=== PATIENT | female | born 1980 | race Caucasian/White ===

== ENCOUNTER 2017-04-28 06:18 | Emergency (ER) | payer BC ==
[~2017-04-28] VITALS: Ht 160 cm; Wt 72.6 kg
[2017-04-28] MEDS ORDERED: CYCL10 PO (07:01)
[2017-10-31] MEDS ORDERED: PROM25 PO (14:26)
[2017-10-31] MEDS ORDERED: PROM25 PR (14:26)
[2017-10-31] MEDS ORDERED: Macrobid 100 M100 MG PO (14:26)
[2017-11-08] MEDS ORDERED: Verotin-Gr Cap1 EACH PO (15:50)
[2017-11-08] MEDS ORDERED: METO10 PO (15:51)
[2017-11-08] MEDS ORDERED: ONDA4 PO (15:52)
== END 2017-04-28 07:11 | disposition home or self-care (01) ==
LOC: ER 06:18
DX: M43.6 Torticollis (principal); Z88.0 Allergy status to penicillin
CPT/HCPCS: 99283

== ENCOUNTER 2017-11-19 00:30 | Day surgery (SDC) | payer BC ==
[~2017-11-19 00:30] MED LIST: CYCL10 PO; METO10 PO; Macrobid 100 M100 MG PO; ONDA4 PO; PROM25 PO; PROM25 PR; Verotin-Gr Cap1 EACH PO
== END 2017-11-19 10:35 | disposition home or self-care (01) ==
LOC: ATC 00:30
DX: O21.0 Mild hyperemesis gravidarum (principal); Z3A.00 Weeks of gestation of pregnancy not specified
CPT/HCPCS: 96365; 96375; J2405; J3411; J3475; J7042

== ENCOUNTER 2017-11-26 00:49 | Day surgery (SDC) | payer BC | END 2017-11-26 10:56 | disposition home or self-care (01) | LOC: ATC 00:49 | DX: O21.0 Mild hyperemesis gravidarum (principal); Z3A.00 Weeks of gestation of pregnancy not specified | CPT/HCPCS: 96365; 96375; J2405; J3411; J3475; J7042 ==

== ENCOUNTER 2017-12-03 00:22 | Day surgery (SDC) | payer BC ==
[~2017-12-03 00:22] MED LIST changes: -NITR100CA PO; -ZOFRAN4 MG/5 M1 IV
== END 2017-12-03 11:01 | disposition home or self-care (01) ==
LOC: ATC 00:22
DX: O21.0 Mild hyperemesis gravidarum (principal); Z3A.00 Weeks of gestation of pregnancy not specified
CPT/HCPCS: 96360; 96374; J2405; J3411; J3475; J7042

== ENCOUNTER → 2017-12-03 | Outpatient (CLI) | payer BC ==
[~2017-12-03] MED LIST changes: +NITR100CA PO; +ZOFRAN4 MG/5 M1 IV
[2017-12-03 13:06] LABS: Bilirubin, Urine Neg (Neg); Blood, Urine 1+ (Neg); Glucose Qualitative, Urine 4+ (Neg); Ketones, Urine Neg (Neg); Leukocyte Esterase, Urine Neg (Neg); Nitrite, Urine Neg (Neg); Protein, Urine Neg (Neg); Urobilinogen, Urine NORM (Normal)
[2017-12-03 13:26] LABS: Appearance, Urine Clear (Clear); Color, Urine Yellow (P-Yellow)
[2017-12-03 13:28] LABS: Bacteria Rare /hpf; Mucus Light (0-Heavy); Red Blood Cells, Urine 0-2 /hpf (0-2); Squamous Epithelial Cells Mod /hpf (Few); White Blood Cells, Urine 0-2 /hpf (0-5)
== END | disposition home or self-care (01) ==
LOC: LAB 11:30 → LAB SHORT 11:30
PROVIDERS: Advanced Practice Midwife
DX: R82.99 Other abnormal findings in urine (principal)
CPT/HCPCS: 81001; 87086

== ENCOUNTER 2017-12-05 00:28 | Day surgery (SDC) | payer BC ==
[2017-12-05] MEDS ORDERED: ZOFRAN4 MG/5 M1 IV (09:39)
[2017-12-05] MEDS ORDERED: NITR100CA PO (09:40)
== END 2017-12-05 10:38 | disposition home or self-care (01) ==
LOC: ATC 00:28
DX: O21.0 Mild hyperemesis gravidarum (principal); Z3A.00 Weeks of gestation of pregnancy not specified
CPT/HCPCS: 96365; 96375; J2405; J3411; J3475; J7042

== ENCOUNTER 2017-12-07 00:39 | Day surgery (SDC) | payer BC ==
[~2017-12-07 00:39] MED LIST changes: +NITR100CA PO; +ZOFRAN4 MG/5 M1 IV
== END 2017-12-07 10:33 | disposition home or self-care (01) ==
LOC: ATC 00:39
DX: O21.0 Mild hyperemesis gravidarum (principal); O09.521 Supervision of elderly multigravida, first trimester; Z3A.13 13 weeks gestation of pregnancy; Z88.0 Allergy status to penicillin
CPT/HCPCS: 96365; 96375; J2405; J3411; J3475; J7042

== ENCOUNTER 2017-12-11 00:15 | Day surgery (SDC) | payer BC | END 2017-12-11 10:58 | disposition home or self-care (01) | LOC: ATC 00:15 | DX: O21.0 Mild hyperemesis gravidarum (principal); Z3A.14 14 weeks gestation of pregnancy | CPT/HCPCS: 96365; 96375; J2405; J3411; J3475; J7042 ==

== ENCOUNTER 2017-12-13 00:25 | Day surgery (SDC) | payer BC | END 2017-12-13 12:00 | disposition home or self-care (01) | LOC: ATC 00:25 | DX: O21.0 Mild hyperemesis gravidarum (principal) | CPT/HCPCS: 96365; 96375; J2405; J3411; J3475; J7042 ==

== ENCOUNTER 2017-12-15 09:12 | Day surgery (SDC) | payer BC | END 2017-12-15 10:34 | disposition home or self-care (01) | LOC: ATC 09:12 | DX: O21.0 Mild hyperemesis gravidarum (principal); O09.521 Supervision of elderly multigravida, first trimester; Z3A.00 Weeks of gestation of pregnancy not specified | CPT/HCPCS: 96365; 96375; J2405; J3411; J3475; J7042 ==

== ENCOUNTER 2017-12-17 00:11 | Day surgery (SDC) | payer BC | END 2017-12-17 10:26 | disposition home or self-care (01) | LOC: ATC 00:11 | DX: O21.0 Mild hyperemesis gravidarum (principal); Z3A.21 21 weeks gestation of pregnancy | CPT/HCPCS: 96365; 96375; J2405; J3411; J3475; J7042 ==

== ENCOUNTER 2017-12-21 00:17 | Day surgery (SDC) | payer BC | END 2017-12-21 09:55 | disposition home or self-care (01) | LOC: ATC 00:17 | DX: O21.0 Mild hyperemesis gravidarum (principal) | CPT/HCPCS: 96365; 96375; J2405; J3411; J3475; J7042 ==

== ENCOUNTER 2017-12-23 00:10 | Day surgery (SDC) | payer BC | END 2017-12-23 10:20 | disposition home or self-care (01) | LOC: ATC 00:10 | DX: O21.0 Mild hyperemesis gravidarum (principal); Z3A.00 Weeks of gestation of pregnancy not specified | CPT/HCPCS: 96365; 96375; J2405; J3411; J3475; J7042 ==

== ENCOUNTER 2017-12-27 00:13 | Day surgery (SDC) | payer BC ==
[2017-12-27] MEDS ORDERED: SCOPOLAMINE1 EACH TD (10:53)
== END 2017-12-27 11:55 | disposition home or self-care (01) ==
LOC: ATC 00:13
DX: O21.0 Mild hyperemesis gravidarum (principal); Z3A.00 Weeks of gestation of pregnancy not specified
CPT/HCPCS: 96365; 96375; J2405; J3411; J3475; J7042

== ENCOUNTER 2017-12-29 08:03 | Day surgery (SDC) | payer BC ==
[~2017-12-29 08:03] MED LIST changes: +SCOPOLAMINE1 EACH TD
== END 2017-12-29 09:52 | disposition home or self-care (01) ==
LOC: ATC 08:03
DX: O21.0 Mild hyperemesis gravidarum (principal)
CPT/HCPCS: 96365; 96375; J2405; J3411; J3475; J7042

== ENCOUNTER 2017-12-31 00:08 | Day surgery (SDC) | payer BC | END 2017-12-31 09:34 | disposition home or self-care (01) | LOC: ATC 00:08 | DX: O21.0 Mild hyperemesis gravidarum (principal); Z3A.00 Weeks of gestation of pregnancy not specified | CPT/HCPCS: 96365; 96375; J2405; J3411; J3475; J7042 ==

== ENCOUNTER 2018-01-02 00:25 | Day surgery (SDC) | payer BC | END 2018-01-02 09:34 | disposition home or self-care (01) | LOC: ATC 00:25 | DX: O21.0 Mild hyperemesis gravidarum (principal); Z3A.00 Weeks of gestation of pregnancy not specified | CPT/HCPCS: 96365; 96375; J2405; J3411; J3475; J7042 ==

== ENCOUNTER 2018-01-04 00:32 | Day surgery (SDC) | payer BC | END 2018-01-04 10:50 | disposition home or self-care (01) | LOC: ATC 00:32 | DX: O21.0 Mild hyperemesis gravidarum (principal) | CPT/HCPCS: 96365; 96375; J2405; J3411; J3475; J7042 ==

== ENCOUNTER 2018-01-06 00:43 | Day surgery (SDC) | payer BC | END 2018-01-06 10:28 | disposition home or self-care (01) | LOC: ATC 00:43 | DX: O21.0 Mild hyperemesis gravidarum (principal) | CPT/HCPCS: 96365; 96375; J2405; J3411; J3475; J7042 ==

== ENCOUNTER 2018-01-08 02:10 | Day surgery (SDC) | payer BC | END 2018-01-08 11:15 | disposition home or self-care (01) | LOC: ATC 02:10 | DX: O21.0 Mild hyperemesis gravidarum (principal) | CPT/HCPCS: 96365; 96375; J2405; J3411; J3475; J7042 ==

== ENCOUNTER 2018-01-10 00:21 | Day surgery (SDC) | payer BC | END 2018-01-10 10:34 | disposition home or self-care (01) | LOC: ATC 00:21 | DX: O21.0 Mild hyperemesis gravidarum (principal) | CPT/HCPCS: 96365; 96375; J2405; J3411; J3475; J7042 ==

== ENCOUNTER 2018-01-12 08:57 | Day surgery (SDC) | payer BC | END 2018-01-12 10:27 | disposition home or self-care (01) | LOC: ATC 08:57 | DX: O21.0 Mild hyperemesis gravidarum (principal); Z3A.00 Weeks of gestation of pregnancy not specified | CPT/HCPCS: 96365; 96375; J2405; J3411; J3475; J7042 ==

== ENCOUNTER 2018-01-14 00:04 | Day surgery (SDC) | payer BC | END 2018-01-14 22:38 | disposition home or self-care (01) | LOC: ATC 00:04 | DX: O21.0 Mild hyperemesis gravidarum (principal) | CPT/HCPCS: 96365; 96375; J2405; J3411; J3475; J7042 ==

== ENCOUNTER 2018-01-16 00:24 | Day surgery (SDC) | payer BC | END 2018-01-16 10:30 | disposition home or self-care (01) | LOC: ATC 00:24 | DX: O21.0 Mild hyperemesis gravidarum (principal) | CPT/HCPCS: 96365; 96375; J2405; J3411; J3475; J7042 ==

== ENCOUNTER 2018-02-06 13:28 | Day surgery (SDC) | payer BC | END 2018-02-06 15:15 | disposition home or self-care (01) | LOC: ATC 13:28 | DX: O21.0 Mild hyperemesis gravidarum (principal); Z3A.00 Weeks of gestation of pregnancy not specified | CPT/HCPCS: 96365; 96375; J2405; J3411; J3475; J7042 ==

== ENCOUNTER → 2018-05-02 | Outpatient (CLI) | payer BC ==
[~2018-05-02] MED LIST changes: +IBUP800
== END ==
LOC: LAB 09:38 → LAB SHORT 09:38
DX: Z34.80 Encounter for supervision of other normal pregnancy, unspecified trimester (principal)
CPT/HCPCS: 87081; 87653

== ENCOUNTER 2018-05-13 17:48 | Observation (INO) | payer BC ==
[~2018-05-13] VITALS: Ht 167.6 cm; Wt 86.3 kg
[~2018-05-13 17:48] MED LIST changes: -IBUP800
== END 2018-05-14 11:30 | disposition home or self-care (01) ==
LOC: OBS 17:48 → BC 17:49 → OBS 19:40 → BC 19:42
PROVIDERS: ADMIT Advanced Practice Midwife
DX: O12.13 Gestational proteinuria, third trimester (principal); O21.0 Mild hyperemesis gravidarum; O99.343 Other mental disorders complicating pregnancy, third trimester; Z3A.35 35 weeks gestation of pregnancy; Z88.0 Allergy status to penicillin
CPT/HCPCS: 59025; 76819; 99214; G0378

== ENCOUNTER 2018-05-25 14:14 | Inpatient (IN) | payer BC ==
[~2018-05-25] VITALS: Ht 160 cm; Wt 0.1 kg
[2018-05-25 14:53] LABS: BASOPHILS ABSOLUTE AUTO 0.02 K/mm3 (0.00-0.23); BASOPHILS PERCENT AUTO 0 % (0-2); EOSINOPHILS ABSOLUTE AUTO 0.08 K/mm3 (0.00-0.68); EOSINOPHILS PERCENT AUTO 1 % (0-6); Hematocrit 36.4 % (33.0-51.0); Hemoglobin 11.9 g/dL (11.5-16.0); IMMATURE GRAN ABSOLUTE AUTO 0.06 K/mm3 (0.00-0.10); IMMATURE GRAN PERCENT AUTO 1 % (0-1); LYMPHOCYTES ABSOLUTE AUTO 1.04 K/mm3 (0.84-5.20); LYMPHOCYTES PERCENT AUTO 11 % (21-46); MONOCYTES ABSOLUTE AUTO 0.58 K/mm3 (0.16-1.47); MONOCYTES PERCENT AUTO 6 % (4-13); Mean Corpuscular HGB 27.5 pg (26.0-34.0); Mean Corpuscular HGB Conc 32.7 g/dL (31.5-36.5); Mean Corpuscular Volume 84 fL (80-100); Mean Platelet Volume 10.2 fL (9.1-12.4); NEUTROPHILS ABSOLUTE AUTO 7.64 K/mm3 (1.96-9.15); NEUTROPHILS PERCENT AUTO 81 % (41-73); Platelet Count 241 K/mm3 (150-400); RDW Coefficient Variation 14.1 % (11.7-14.2); RDW Standard Deviation 43.2 fL (35.1-46.3); Red Blood Cell Count 4.33 M/mm3 (3.80-5.20); White Blood Cell Count 9.42 K/mm3 (4.00-11.30)
--- NOTE | 2018-05-26 14:06 | NUR ---
1ST PP VOID
[2018-05-27 05:49] LABS: Hematocrit 32.2 % (33.0-51.0); Hemoglobin 10.2 g/dL (11.5-16.0); Mean Corpuscular HGB Conc 31.7 g/dL (31.5-36.5); Mean Corpuscular Volume 85 fL (80-100); Mean Platelet Volume 10.2 fL (9.1-12.4); Platelet Count 191 K/mm3 (150-400); RDW Coefficient Variation 14.6 % (11.7-14.2); RDW Standard Deviation 44.4 fL (35.1-46.3); Red Blood Cell Count 3.78 M/mm3 (3.80-5.20); White Blood Cell Count 10.35 K/mm3 (4.00-11.30)
[2018-05-27] MEDS ORDERED: IBUP800 (10:04)
--- NOTE | 2018-05-27 13:47 | NUR ---
PATIENT GIVEN DISCHARGE INSTRUCTIONS. ALL QUESTIONS ANSWERED.
--- NOTE | 2018-05-27 14:00 | NUR ---
DISCHARGED TO HOME WITH BABY IN CAR SEAT. WALKED OUT BY RN AT 1400.
== END 2018-05-27 14:00 | disposition home or self-care (01) | DRG 807 ==
LOC: OBS 14:14 → BC 14:20
PROVIDERS: ADMIT Advanced Practice Midwife
PROC: 10E0XZZ Delivery of Products of Conception, External Approach (ICD-10-PCS; principal; 2018-05-26)
PROC: 0KQM0ZZ Repair Perineum Muscle, Open Approach (ICD-10-PCS; 2018-05-26)
PROC: 10H07YZ Insertion of Other Device into Products of Conception, Via Natural or Artificial Opening (ICD-10-PCS; 2018-05-26)
PROC: 3E0R3BZ Introduction of Anesthetic Agent into Spinal Canal, Percutaneous Approach (ICD-10-PCS; 2018-05-26)
DX: O12.14 Gestational proteinuria, complicating childbirth (principal); Z37.0 Single live birth; Z3A.38 38 weeks gestation of pregnancy; O70.1 Second degree perineal laceration during delivery; Z88.0 Allergy status to penicillin; Z91.013 Allergy to seafood
CPT/HCPCS: 36415; 51702; 85025; 85027; 90471; 90707; J1885; J2590; J7120

== ENCOUNTER → 2018-07-14 | Outpatient (CLI) | payer BC ==
[~2018-07-14] MED LIST changes: +IBUP800
[2018-07-14 13:12] LABS: Protein, Urine Quantitative 13.3 mg/dL (0.0-11.9)
== END | disposition home or self-care (01) ==
LOC: LAB SHORT 12:09 → LAB 12:09
PROVIDERS: Advanced Practice Midwife
DX: R80.9 Proteinuria, unspecified (principal)
CPT/HCPCS: 81050; 84156

== ENCOUNTER → 2019-07-17 | Outpatient (CLI) | payer BC | END | disposition home or self-care (01) | LOC: LAB 08:30 → LAB SHORT 08:30 | DX: J02.9 Acute pharyngitis, unspecified (principal) | CPT/HCPCS: 87081 ==

== ENCOUNTER → 2021-05-14 | Outpatient (CLI) | payer BC | LOC: LAB SHORT 16:15 | DX: J02.9 Acute pharyngitis, unspecified (principal) | CPT/HCPCS: 87081 ==

== ENCOUNTER → 2023-12-13 | Outpatient (CLI) | payer OTHER ==
[2023-12-13 19:49] LABS: Candida Group, PCR NOT DETECTED (NOT DETECT); Candida glabrata-krusei, PCR NOT DETECTED (NOT DETECT)
[2023-12-13 19:52] LABS: Bacterial Vaginosis PCR Positive (NEGATIVE)
[2023-12-17 17:41] LABS: MYCOPLASMA GENITALIUM BY PCR Not Detected; MYCOPLASMA HOMINIS BY PCR Not Detected; UREAPLASMA MYCOPLASMA SOURCE Urine; UREAPLASMA PARVUM BY PCR Detected; UREAPLASMA UREALYTICUM BY PCR Not Detected
[2023-12-18 08:26] LABS: APTIMA MEDIA TYPE Unisex Swab; C. TRACHOMATIS BY TMA Negative (Negative); N. GONORRHOEAE BY TMA Negative (Negative); SPECIMEN SOURCE Vaginal
== END ==
LOC: LAB 18:02 → LAB SHORT 18:02
PROVIDERS: Obstetrics & Gynecology
DX: Z11.3 Encounter for screening for infections with a predominantly sexual mode of transmission (principal); N76.0 Acute vaginitis
CPT/HCPCS: 87481; 87491; 87563; 87591; 87661; 87798; 87801

== ENCOUNTER 2024-02-18 19:51 | Emergency (ER) | payer OTHER ==
[~2024-02-18] VITALS: Ht 160 cm; Wt 86.2 kg
[2024-02-18 20:09] VITALS: BP 137/89
== END 2024-02-18 21:27 | disposition home or self-care (01) ==
LOC: ER 19:51
DX: M79.10 Myalgia, unspecified site (principal); Z79.899 Other long term (current) drug therapy; Z88.0 Allergy status to penicillin; Z91.013 Allergy to seafood; V40.5XXA Car driver injured in collision with pedestrian or animal in traffic accident, initial encounter
CPT/HCPCS: 99283

== ENCOUNTER → 2024-06-10 | Outpatient (CLI) | payer OTHER ==
[2024-06-14 04:46] LABS: MYCOPLASMA GENITALIUM BY PCR Not Detected; MYCOPLASMA HOMINIS BY PCR Not Detected; UREAPLASMA MYCOPLASMA SOURCE Urine; UREAPLASMA PARVUM BY PCR Detected; UREAPLASMA UREALYTICUM BY PCR Not Detected
[2024-06-17 18:29] LABS: HPV HIGH RISK BY TMA Not Detected; HPV SOURCE Cervical
== END ==
LOC: LAB SHORT 16:23 → LAB 16:23
PROVIDERS: Obstetrics & Gynecology
DX: Z01.419 Encounter for gynecological examination (general) (routine) without abnormal findings (principal); R10.2 Pelvic and perineal pain
CPT/HCPCS: 87563; 87624; 87798; G0123